=== PATIENT | male | born 1995 | race African-American/Black ===

== ENCOUNTER 2025-06-16 01:16 | Emergency (ER) | payer OTHER ==
[2025-06-16 01:26] VITALS: RESP 18; BMI 24.6
[2025-06-16] MEDS ORDERED: ACETAMINOPHEN 325 MG TABLET (FP) ONE (02:17)
[2025-06-16] MEDS: ACETAMINOPHEN 325 MG TABLET (FP) PO ONE (02:41)
[2025-06-16] MEDS ORDERED: IBUPROFEN 600 MG TABLET (FP) PO ONE (03:22)
[2025-06-16] MEDS ORDERED: LIDOCAINE 5% TOPICAL PATCH ONE (03:23)
[2025-06-16] MEDS: LIDOCAINE 5% TOPICAL PATCH TP ONE (03:27)
[2025-06-16] MEDS: IBUPROFEN 600 MG TABLET (FP) PO ONE (03:27)
[2025-06-16 03:28] VITALS: BP 138/78; PULSE 90; TEMP 98.2
[2025-06-16 03:56] LABS: HCV DIAGNOSTIC IN-HOUSE W/RFLX NON-REACTIVE (NONREACTIVE)
[2025-06-16 04:17] LABS: HIV INTERPRETATION NEGATIVE (NEGATIVE)
[2025-06-16] MEDS ORDERED: LIDOCAINE PATCH REMOVAL MC SCH (22:00)
== END 2025-06-16 03:28 | disposition home or self-care (01) ==
LOC: JER 01:16
DX: R07.2 Precordial pain (principal)
CPT/HCPCS: 36415; 71046-TC-FY; 86803; 87389; 93005; 93010; 99285-25